=== PATIENT | female | born 1925 | race Caucasian/White ===

== ENCOUNTER 2016-10-02 13:09 | Inpatient (IN) | payer OTHER ==
[~2016-10-02] VITALS: Ht 157.5 cm; Wt 75.0 kg
[2016-10-02 13:51] LABS: MCH 29.6 PG (29.0-34.0); MCHC 31.6 G/DL (30.0-36.0); MCV 93.6 FL (83-99); MEAN PLAT.VOLUME 9.1 uM^3 (9.5-12.4); PLATELET COUNT 167 K/uL (156-360); RBC DIS.WIDTH-CV 14.1 % (11.8-14.6); RBC DIS.WIDTH-SD 46.1 % (39-53); RED BLOOD COUNT 4.06 M/uL (3.80-5.20); WHITE BLOOD COUNT 12.2 K/uL (4.1-10.2)
[2016-10-02 13:55] LABS: CHLORIDE 105 mEq/L (99-109); POTASSIUM 4.3 mEq/L (3.7-5.4); SODIUM 140 mEq/L (136-147)
[2016-10-02 13:58] LABS: GLUCOSE 221 mg/dL (70-99)
[2016-10-02 13:59] LABS: ANION GAP 7 MEQ/L (2-14)
[2016-10-02 14:00] LABS: TOTAL BILIRUBIN 0.3 mg/dL (0.0-1.0)
[2016-10-02 14:01] LABS: ALKALINE PHOSPHATASE 68 IU/L (3-129); GFR ESTIMATE (CALCULATED) 50 mL/min/
[2016-10-02 14:02] LABS: UREA NITROGEN (BUN) 32 mg/dL (9-23)
[2016-10-02 14:25] LABS: INFLUENZA A VIRAL ANTIGEN NEGATIVE; INFLUENZA B VIRAL ANTIGEN NEGATIVE
[2016-10-02 15:56] LABS: EOSINOPHIL (%) 0.2 % (0-5); IMMATURE GRANULOCYTE (%) 0.3 % (0.0-0.7); LYMPHOCYTE COUNT 2.3 K/uL (1.0-2.8); MONOCYTE (%) 9.3 % (3-12); MONOCYTE COUNT 1.1 K/uL (0-0.8); NEUTROPHIL (%) 69.6 % (45-76)
[2016-10-02 16:00] LABS: DIRECT BILIRUBIN 0.1 mg/dL (0.0-0.3)
[2016-10-02 16:05] LABS: TROP-I INTERPRETATION NEGATIVE; TROPONIN-I 0.03 ng/mL (0.0-0.30)
[2016-10-02] MEDS ORDERED: LEVEMIR100 UNIT/2 SC ×2 (17:06)
[2016-10-02] MEDS ORDERED: LOPRESSOR50 MG PO (17:07)
[2016-10-02] MEDS ORDERED: LITE COAT ASPI325 M1 PO (17:07)
[2016-10-02 17:52] LABS: POINT-OF-CARE METER ID UU14100415
[2016-10-02 18:51] VITALS: BP 115/62
[2016-10-02 21:23] VITALS: BP 134/60
[2016-10-03] VITALS (7 sets, daily range): BP systolic 100–137; BP diastolic 51–63
[2016-10-03 11:24] LABS: POINT-OF-CARE METER ID UU13113698
[2016-10-03 12:32] LABS: ADD MIUA? YES; BILIRUBIN NEGATIVE; BLOOD LARGE; COLOR YELLOW ((YELLOW)); GLUCOSE (STRIP) 150; KETONES NEGATIVE; LEUKOCYTES LARGE; NITRITE NEGATIVE; PROTEIN (STRIP) 100; SPECIFIC GRAVITY 1.016 (1.000-1.030); UROBILINOGEN 0.2 MG/DL (0.2-1.0)
[2016-10-03 13:09] LABS: BACTERIA RARE /HPF; BUDDING YEAST 4+; EPITHELIAL CELLS 4+ /HPF; MUCUS NONE SEEN /LPF; RED BLOOD CELLS TNTC /HPF (0-5); WHITE BLOOD CELLS TNTC /HPF (0-5); WHITE BLOOD CELLS CLUMP MANY /HPF (0-5)
[2016-10-03 16:33] LABS: POINT-OF-CARE METER ID UU14174216
[2016-10-03 21:17] LABS: POINT-OF-CARE METER ID UU13113698
[2016-10-04 04:35] VITALS: BP 150/65
[2016-10-04 07:03] LABS: HEMATOCRIT 35.6 % (36.0-46.0); MCH 30.6 PG (29.0-34.0); MCHC 32.6 G/DL (30.0-36.0); MCV 93.9 FL (83-99); PLATELET COUNT 167 K/uL (156-360); RBC DIS.WIDTH-CV 14.5 % (11.8-14.6); RBC DIS.WIDTH-SD 49.2 % (39-53); RED BLOOD COUNT 3.79 M/uL (3.80-5.20); WHITE BLOOD COUNT 9.9 K/uL (4.1-10.2)
[2016-10-04 08:17] LABS: POINT-OF-CARE METER ID UU13113698
[2016-10-04 09:03] LABS: POINT-OF-CARE METER ID UU13113698
[2016-10-04 09:13] VITALS: BP 122/57
[2016-10-04 11:27] LABS: POINT-OF-CARE METER ID UU13113698
[2016-10-04 11:41] LABS: POINT-OF-CARE METER ID UU14100415; POINT-OF-CARE USER ID PUTMLD10
[2016-10-04 12:17] VITALS: BP 104/55
[2016-10-04 17:25] VITALS: BP 112/53
[2016-10-04 19:26] VITALS: BP 108/53
[2016-10-04 23:00] VITALS: BP 96/48
[2016-10-05 04:16] VITALS: BP 142/65
[2016-10-05 07:27] VITALS: BP 117/56
[2016-10-05 08:34] LABS: POINT-OF-CARE METER ID UU14174216
[2016-10-05 11:10] VITALS: BP 115/55
[2016-10-05 14:55] VITALS: BP 116/65
[2016-10-05 16:27] LABS: POINT-OF-CARE METER ID UU13113698
[2016-10-05 20:00] VITALS: BP 90/54
[2016-10-05 23:52] VITALS: BP 129/67
[2016-10-06 04:00] VITALS: BP 129/63
[2016-10-06 07:21] VITALS: BP 136/63
[2016-10-06 08:01] LABS: POINT-OF-CARE METER ID UU14174216
[2016-10-06 11:36] VITALS: BP 129/59
[2016-10-06 16:00] VITALS: BP 122/65
[2016-10-06 19:34] VITALS: BP 129/55
[2016-10-07 00:09] VITALS: BP 142/63
[2016-10-07 04:21] VITALS: BP 111/55
[2016-10-07 07:51] LABS: POINT-OF-CARE METER ID UU13113698
[2016-10-07] MEDS ORDERED: AUGMENTIN875 MG PO (08:05)
[2016-10-07 08:23] VITALS: BP 128/65
[2016-10-07] MEDS ORDERED: AUGMENTIN500 MG PO ×2 (08:47→09:39)
[2016-10-07 11:29] LABS: POINT-OF-CARE METER ID UU13113698
== END 2016-10-07 11:52 | disposition home or self-care (01) | DRG 194 ==
LOC: EME 13:09 → EXP 13:09 → 4EAST 16:15 → EDOF 16:15 → 4EAST 18:20
PROVIDERS: Internal Medicine; Nurse Practitioner Family
DX: J18.9 Pneumonia, unspecified organism (principal); J81.1 Chronic pulmonary edema; I10 Essential (primary) hypertension; R05 Cough; E11.9 Type 2 diabetes mellitus without complications; Z86.73 Personal history of transient ischemic attack (TIA), and cerebral infarction without residual deficits; Z95.2 Presence of prosthetic heart valve; Z88.2 Allergy status to sulfonamides; R09.02 Hypoxemia; Z66 Do not resuscitate; R51 Headache
CPT/HCPCS: 71020; 80053; 81003; 82248; 82948; 83880; 84484; 85025; 85027; 87040; 87502; 93005; 93306; 94640; 94640 76; 94799; 99202; 99281; 99285; J0456; J0696; J1650; J1815; J1940; J7050